=== PATIENT | female | born 2000 | race Caucasian/White ===

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

== ENCOUNTER 2021-02-13 22:25 | Emergency (ER) | payer BC ==
[~2021-02-13] VITALS: Ht 162.6 cm; Wt 67.3 kg
[2021-02-13 23:20] VITALS: TEMP 99
[2021-02-13 23:59] LABS: COLLECTION METHOD CLEAN CATCH
[2021-02-14 00:03] LABS: BASO % 0.5 % (0.0-2.0); EOS # 0.2 K/mm3 (0.0-0.7); EOS % 1.9 % (0-4.0); GRAN # 5.1 K/mm3 (1.4-6.5); GRAN % 63.5 % (42.2-75.2); HEMOGLOBIN 12.1 g/dl (12.0-15.0); LYMPH % 24.6 % (20.0-51.0); MEAN CELL VOLUME 91 fl (80.0-95.0); MEAN CORPUSCULAR HEMOGLOBIN 30 pg (26.0-32.0); MEAN CORPUSCULAR HGB CONC 34 g/dl (33.0-37.0); MEAN PLATELET VOLUME 10.1 fl (7.4-10.4); MONO # 0.7 K/mm3 (0.1-0.6); MONO % 9.1 % (1.7-9.3); PLATELET COUNT 266 K/mm3 (130-400); RED BLOOD COUNT 3.98 M/mm3 (4.10-5.30); REDCELL DISTRIBUTION WIDTH-CV 13.9 % (11.5-14.5)
[2021-02-14 00:12] LABS: MUCOUS Present /lpf; PH 6 (5-8); SQUAMOUS EPITHELIAL 0-2 /hpf; URINE APPEARANCE Clear; URINE BACTERIA None Seen /hpf; URINE BILIRUBIN Negative (NEGATIVE); URINE BLOOD Negative (NEGATIVE); URINE COLOR Yellow; URINE GLUCOSE Negative (NEGATIVE); URINE KETONE Negative (NEGATIVE); URINE LEUKOCYTE ESTERASE Negative (NEGATIVE); URINE NITRATE Negative (NEGATIVE); URINE PROTEIN(semi-quant) Negative (NEGATIVE); URINE RBC 0-2 /hpf; URINE UROBILINOGEN Negative (NEGATIVE)
[2021-02-14 00:42] LABS: BILIRUBIN,TOTAL 0.4 mg/dL (0.2-1.2); C-REACTIVE PROTEIN 0.03 mg/dL (0.00-0.50); CALCIUM 9.4 mg/dL (8.4-10.2); CREATININE, serum 0.78 mg/dL (0.57-1.11); POTASSIUM 3.7 mmol/L (3.5-4.5); TOTAL PROTEIN 6.9 gm/dL (6.2-8.1)
[2021-02-14] MEDS ORDERED: MEDROL 4MG DOSPA4 MG PO (01:45)
[2021-02-14 01:58] VITALS: BP 111/72; PULSE 71
== END 2021-02-14 01:58 | disposition home or self-care (01) ==
LOC: COL.ER 22:25
PROVIDERS: Emergency Medicine
DX: R10.9 Unspecified abdominal pain (principal); Z32.02 Encounter for pregnancy test, result negative
CPT/HCPCS: J1885; J7030

== ENCOUNTER 2021-12-16 13:39 | Emergency (ER) | payer BC ==
[~2021-12-16] VITALS: Ht 165.1 cm; Wt 64.5 kg
[~2021-12-16 13:39] MED LIST: MEDROL 4MG DOSPA4 MG PO
[2021-12-16 13:49] VITALS: TEMP 98.6
[2021-12-16 14:34] LABS: BASO # 0.1 K/mm3 (0.0-0.2); BASO % 0.6 % (0.0-2.0); EOS # 0.6 K/mm3 (0.0-0.7); EOS % 6.9 % (0.0-4.0); GRAN % 57.3 % (42.2-75.2); HEMATOCRIT 37.8 % (35.0-45.0); LYMPH # 2.2 K/mm3 (1.2-3.4); LYMPH % 25.5 % (20.0-51.0); MEAN CELL VOLUME 90 fl (80.0-95.0); MEAN CORPUSCULAR HEMOGLOBIN 31 pg (26-32); MEAN CORPUSCULAR HGB CONC 34 g/dl (33.0-37.0); MEAN PLATELET VOLUME 9.6 fl (7.4-10.4); MONO # 0.8 K/mm3 (0.1-0.6); MONO % 9.6 % (1.7-9.3); PLATELET COUNT 261 K/mm3 (130-400); RED BLOOD COUNT 4.18 M/mm3 (4.10-5.30); REDCELL DISTRIBUTION WIDTH-CV 12.3 % (11.5-14.5)
[2021-12-16 14:53] LABS: ALBUMIN 4.1 gm/dL (3.5-5.0); BILIRUBIN,TOTAL 0.3 mg/dL (0.2-1.2); C-REACTIVE PROTEIN 0.03 mg/dL (0.00-0.50); CALCIUM 9.3 mg/dL (8.4-10.2); CREATININE, serum 0.72 mg/dL (0.57-1.11); POTASSIUM 3.7 mmol/L (3.5-4.5); TOTAL PROTEIN 6.7 gm/dL (6.2-8.1)
[2021-12-16 15:26] VITALS: BP 114/56; PULSE 77
== END 2021-12-16 15:26 | disposition home or self-care (01) ==
LOC: COL.ER 13:39
PROVIDERS: Physician Assistant
DX: K62.5 Hemorrhage of anus and rectum (principal)

== ENCOUNTER 2022-09-20 18:38 | Emergency (ER) | payer BC ==
[~2022-09-20] VITALS: Ht 165.1 cm; Wt 61.4 kg
[2022-09-20] MEDS ORDERED: AMOXICILLIN 8751 TAB PO (19:03)
[2022-09-20 19:15] VITALS: BP 124/83; PULSE 80; TEMP 97.4
== END 2022-09-20 19:15 | disposition home or self-care (01) ==
LOC: COL.ER 18:38
DX: S00.81XA Abrasion of other part of head, initial encounter (principal); S00.01XA Abrasion of scalp, initial encounter; S00.411A Abrasion of right ear, initial encounter; W55.03XA Scratched by cat, initial encounter

== ENCOUNTER 2023-03-21 21:30 | Emergency (ER) | payer BC ==
[~2023-03-21] VITALS: Ht 165.1 cm; Wt 63.6 kg
[~2023-03-21 21:30] MED LIST changes: +AMOXICILLIN 8751 TAB PO
[2023-03-21 21:35] VITALS: TEMP 98.3
[2023-03-21 22:15] LABS: BASO % 0.4 % (0.0-2.0); EOS # 0.2 K/mm3 (0.0-0.7); GRAN # 3.9 K/mm3 (1.4-6.5); GRAN % 52.2 % (42.2-75.2); HEMOGLOBIN 11.7 g/dl (12.5-16.0); LYMPH # 2.6 K/mm3 (1.2-3.4); LYMPH % 35.6 % (20.0-51.0); MEAN CELL VOLUME 89 fl (80.0-100.0); MEAN CORPUSCULAR HEMOGLOBIN 28 pg (27-31); MEAN CORPUSCULAR HGB CONC 32 g/dl (33.0-37.0); MEAN PLATELET VOLUME 9.2 fl (7.4-10.4); MONO # 0.6 K/mm3 (0.1-0.6); MONO % 8.7 % (1.7-9.3); PLATELET COUNT 209 K/mm3 (130-400); RED BLOOD COUNT 4.13 M/mm3 (4.10-5.30); REDCELL DISTRIBUTION WIDTH-CV 15.9 % (11.5-14.5)
[2023-03-21 22:16] LABS: HEMATOCRIT 36.7 % (37.0-47.0)
[2023-03-21 22:35] LABS: ALBUMIN 3.8 gm/dL (3.5-5.0); BILIRUBIN,TOTAL 0.3 mg/dL (0.2-1.2); CALCIUM 9.3 mg/dL (8.4-10.2); CREATININE, serum 0.66 mg/dL (0.57-1.11); POTASSIUM 3.7 mmol/L (3.5-4.5); TOTAL PROTEIN 7.1 gm/dL (6.2-8.1)
[2023-03-21 23:11] VITALS: BP 128/78; PULSE 81
== END 2023-03-21 23:13 | disposition home or self-care (01) ==
LOC: COL.ER 21:30
PROVIDERS: Emergency Medicine
DX: B34.9 Viral infection, unspecified (principal); J10.1 Influenza due to other identified influenza virus with other respiratory manifestations
CPT/HCPCS: J7030

== ENCOUNTER 2023-10-18 18:46 | Emergency (ER) | payer BC ==
[~2023-10-18] VITALS: Ht 165.1 cm; Wt 61.4 kg
[2023-10-18] MEDS ORDERED: NS 1,000 ML IV ONE (21:45)
[2023-10-18] MEDS ORDERED: Ketorolac 15 MG/ML VIAL IV ONE (21:45)
[2023-10-18] MEDS ORDERED: Morphine 4 MG/ML VIAL IV ONE (21:45)
[2023-10-18] MEDS ORDERED: Ondansetron 4 MG/2 ML VIAL IV ONE (21:45)
[2023-10-18 21:46] LABS: BASO % 0.2 % (0.0-2.0); EOS # 0.3 K/mm3 (0.0-0.7); EOS % 4.1 % (0.0-4.0); GRAN % 62.2 % (42.2-75.2); HEMATOCRIT 37.7 % (37.0-47.0); HEMOGLOBIN 12.7 g/dl (12.5-16.0); LYMPH # 1.9 K/mm3 (1.2-3.4); LYMPH % 23.1 % (20.0-51.0); MEAN CELL VOLUME 92 fl (80.0-100.0); MEAN CORPUSCULAR HEMOGLOBIN 31 pg (27-31); MEAN CORPUSCULAR HGB CONC 34 g/dl (33.0-37.0); MEAN PLATELET VOLUME 9.8 fl (7.4-10.4); MONO # 0.8 K/mm3 (0.1-0.6); MONO % 10.2 % (1.7-9.3); PLATELET COUNT 179 K/mm3 (130-400); RED BLOOD COUNT 4.12 M/mm3 (4.10-5.30); REDCELL DISTRIBUTION WIDTH-CV 12.9 % (11.5-14.5)
[2023-10-18 21:50] LABS: COLLECTION METHOD CLEAN CATCH
[2023-10-18 22:02] LABS: BILIRUBIN,TOTAL 0.3 mg/dL (0.2-1.2); CALCIUM 8.8 mg/dL (8.4-10.2); CREATININE, serum 0.76 mg/dL (0.57-1.11); POTASSIUM 4.1 mEq/L (3.5-4.5); TOTAL PROTEIN 6.8 g/dl (6.2-8.1)
[2023-10-18 22:06] LABS: URINE APPEARANCE CLEAR (CLEAR/HAZY); URINE BLOOD NEGATIVE (NEGATIVE); URINE COLOR YELLOW (YELLOW); URINE GLUCOSE NEGATIVE (NEGATIVE); URINE KETONE NEGATIVE (NEGATIVE); URINE NITRATE NEGATIVE (NEGATIVE); URINE PROTEIN(semi-quant) TRACE (NEGATIVE); URINE UROBILINOGEN 0.2 E.U/dL (0.2-1.0)
[2023-10-18] MEDS ORDERED: Iohexol 300 - 100 ML VIAL IV ONE (22:32)
[2023-10-18] MEDS ORDERED: NS 100 ML IV ONE (22:32)
[2023-10-18] MEDS ORDERED: LEVSIN 0.10.125 MG/T PO (23:08)
[2023-10-18] MEDS ORDERED: CEPHALEXIN500 M1 PO (23:08)
[2023-10-18] MEDS ORDERED: ZOFRAN ODT4 MG PO (23:08)
[2023-10-18 23:32] VITALS: BP 109/75; PULSE 78; TEMP 98.2
== END 2023-10-18 23:32 | disposition home or self-care (01) ==
LOC: COL.ER 18:46
PROVIDERS: Emergency Medicine
DX: K52.9 Noninfective gastroenteritis and colitis, unspecified (principal); F17.290 Nicotine dependence, other tobacco product, uncomplicated
CPT/HCPCS: J1885; J2270; J2405; J7030; Q9967